=== PATIENT | female | born 2000 | race Two or more races ===

== ENCOUNTER 2022-06-03 10:46 | Inpatient (IN) | payer OTHER ==
[2022-06-03] MEDS ORDERED: Ibuprofen 800 MG TAB PO PRN (12:01)
[2022-06-03] MEDS ORDERED: Methylergonovine 0.2 MG/ML VIAL IM PRN (12:01)
[2022-06-03] MEDS ORDERED: Carboprost 250 MCG/ML AMP IM PRN (12:01)
[2022-06-03] MEDS ORDERED: Diphenoxylate HCl/Atropine Tablet PO PRN (12:01)
[2022-06-03] MEDS ORDERED: Acetaminophen 500 MG TAB PO PRN (12:01)
[2022-06-03] MEDS ORDERED: Lidocaine 1% (PF) 30 ML VIAL SC PRN (12:01)
[2022-06-03] MEDS ORDERED: hydrALAZINE 20 MG/ML VIAL SLOW IVP PRN (12:01)
[2022-06-03] MEDS ORDERED: HYDROcodone/Acetaminophen 5/325 mg Tablet PO PRN (12:01)
[2022-06-03] MEDS ORDERED: Butorphanol Tartrate 1 MG/ML VIAL SLOW IVP PRN (12:01)
[2022-06-03] MEDS ORDERED: Misoprostol 200 MCG TAB PR PRN (12:01)
[2022-06-03] MEDS ORDERED: Ondansetron PF 4 MG/2 ML Vial IVP PRN (12:01)
[2022-06-03] MEDS ORDERED: Promethazine HCl 25 MG/ML VIAL IM PRN (12:01)
[2022-06-03 12:05] VITALS: BMI 25.3
[2022-06-03] MEDS ORDERED: NS w/ Oxytocin 30 units 500 ML IV SCH (12:15)
[2022-06-03] MEDS ORDERED: Lactated Ringer's 1,000 ML IV SCH (12:15)
[2022-06-03 12:37] LABS: Hemoglobin 12.1 g/dL (12.0-15.5); Mean Corpuscular Hemoglobin 29.8 pg (27.0-33.0); Mean Corpuscular Volume 85.2 fl (81.6-98.3); Mean Platelet Volume 10.7 fl (7.4-10.4); Platelet Count 231 10x3/uL (150-450); RBC Distribution Width 14.1 % (11.5-14.5); Red Blood Cell (RBC) Count 4.06 10x6/uL (3.90-5.03); White Blood Cell (WBC) Count 6.4 10x3/uL (3.5-10.5)
[2022-06-03 13:13] LABS: Syphilis Antibody Nonreactive (Nonreactive); Syphilis Antibody Index 0.04 S/CO (<1.00 Non-Reactive)
[2022-06-03 13:50] LABS: HBSAg Index 0.19 S/CO (0-0.99); HIV (1/2) Antibody/Antigen Non-Reactive (NonReactive); HIV 1/2 INDEX 0.13 S/CO (<1.00); Hep B Surf Ag Non-Reactive S/CO (NonReactive)
[2022-06-03] MEDS: Misoprostol 100 MCG TAB VAG SCH ×3 (13:58→20:12)
[2022-06-03 14:41] LABS: Amphetamine Not Detected (NotDetected); Barbiturates Screen Not Detected (NotDetected); Benzodiazepine Screen Not Detected (NotDetected); Cocaine Metabolite Screen Not Detected (NotDetected); Methadone Not Detected (NotDetected); Methamphetamine Not Detected (NotDetected); Opiate Screen Not Detected (NotDetected); Oxycodone Screen Not Detected (NotDetected); Phencyclidine (PCP) Not Detected (NotDetected); THC/Cannabinoid Screen Not Detected (NotDetected); Tricyclic Screen Not Detected (NotDetected)
[2022-06-03 20:59] VITALS: TEMP 100.7
[2022-06-04] MEDS ORDERED: Milk Of Magnesia 30 ML UDCUP PO PRN (01:40)
[2022-06-04] MEDS ORDERED: Zolpidem Tartrate 5 MG TAB PO PRN (01:40)
[2022-06-04] MEDS ORDERED: Bisacodyl 10 MG SUPP PR PRN (01:40)
[2022-06-04] MEDS ORDERED: HYDROcodone/Acetaminophen 5/325 mg Tablet PO PRN (01:40)
[2022-06-04] MEDS ORDERED: hydrALAZINE 20 MG/ML VIAL SLOW IVP PRN (01:40)
[2022-06-04] MEDS ORDERED: Boostrix 0.5 ML (Tdap) VIAL (>/=7 yrs of age) IM ONE (01:40)
[2022-06-04] MEDS ORDERED: Promethazine HCl 25 MG/ML VIAL IM PRN (01:40)
[2022-06-04] MEDS ORDERED: Misoprostol 200 MCG TAB PO SCH (03:00)
[2022-06-04] MEDS ORDERED: Ibuprofen 800 MG TAB PO SCH (06:00)
[2022-06-04] MEDS ORDERED: Ferrous Sulfate 325 MG TAB PO SCH (08:00)
[2022-06-04] MEDS ORDERED: Docusate 100 MG CAP PO SCH (09:00)
[2022-06-08 14:37] LABS: Parvovirus B19 IgG ABS 4.7 index (0.0-0.8); Parvovirus B19 IgM ABS 0.1 index (0.0-0.8)
== END 2022-06-04 09:57 | disposition home or self-care (01) | DRG 779 ==
LOC: CSHLD 10:46
PROVIDERS: ADMIT Family Medicine; ATTEND Family Medicine
PROC: 10E0XZZ Delivery of Products of Conception, External Approach (ICD-10-PCS; principal; 2022-06-03)
PROC: 3E0P7VZ Introduction of Hormone into Female Reproductive, Via Natural or Artificial Opening (ICD-10-PCS; 2022-06-03)
DX: O02.1 Missed abortion (principal)
CPT/HCPCS: 36415; 76815; 80306; 85027; 86747; 86762; 86780; 86850; 86900; 86901; 87340; 87389; 88300; 88305; J0595; J2405